=== PATIENT | female | born 1970 | race Caucasian/White ===

== ENCOUNTER 2022-01-14 01:10 | Emergency (ER) | payer MEDICAID ==
[~2022-01-14] VITALS: Ht 170.2 cm; Wt 78.0 kg
[2022-01-14 04:51] LABS: BASOPHILS % 1.1 % (0.0-2.0); EOSINOPHILS % 1.7 % (0.0-5.0); HEMATOCRIT. 32.5 % (36.0-48.0); HEMOGLOBIN. 10.2 g/dL (12.0-16.0); LYMPHOCYTES % 26.2 % (20.0-50.0); MEAN CORPUSCULAR HEMOGLOBIN 23.3 pg (28.0-32.0); MEAN CORPUSCULAR VOLUME 74.5 fL (81.0-99.0); MEAN PLATELET VOLUME 7.6 fl (7.4-10.4); MONOCYTES % 7.8 % (2.0-8.0); NEUTROPHILS % 63.2 % (40.0-76.0); PLATELET 385 x1000/uL (130-400); RED BLOOD CELL COUNT 4.37 mill/uL (4.2-5.4)
[2022-01-14 04:59] LABS: CHLORIDE 103 mEq/L (98-107)
[2022-01-14 05:02] LABS: *BARBITURATES SCREEN URINE NEGATIVE (NEGATIVE); *BENZODIAZEPINES SCREEN URINE NEGATIVE (NEGATIVE); *COCAINE SCREEN URINE NEGATIVE (NEGATIVE); CANNABINOID URINE SCREEN NEGATIVE (NEGATIVE); METHADONE URINE SCREEN NEGATIVE (NEGATIVE); OPIATES URINE SCREEN NEGATIVE (NEGATIVE); PHENCYCLIDINE URINE SCREEN NEGATIVE (NEGATIVE)
[2022-01-14 05:07] LABS: ETHANOL BLOOD 74 mg/dL
[2022-01-14 05:08] LABS: PLATELET ESTIMATE NORMAL
[2022-01-14 05:18] LABS: *AMPHETAMINES SCREEN URINE PRESUMTIVE POSITIVE (NEGATIVE)
[2022-01-14] MEDS ORDERED: ACETAMINOPHEN 325MG TABLET PO SCH (09:00)
[2022-01-14] MEDS: OLANZAPINE 5MG TABLET ODT PO SCH (18:58)
[2022-01-14] MEDS: CITALOPRAM HYDROBROMIDE 10MG TABLET PO SCH (18:58)
[2022-01-14] MEDS ORDERED: ACETAMINOPHEN 325MG TABLET PO NR (19:30)
[2022-01-15] MEDS: OLANZAPINE 5MG TABLET ODT PO SCH (06:00)
[2022-01-15] MEDS: CITALOPRAM HYDROBROMIDE 10MG TABLET PO SCH (06:00)
[2022-01-15 09:11] VITALS: BP 145/76
== END 2022-01-15 11:56 | disposition home or self-care (01) ==
LOC: ER 01:10
DX: F10.229 Alcohol dependence with intoxication, unspecified (principal); F15.10 Other stimulant abuse, uncomplicated; R45.851 Suicidal ideations; F20.9 Schizophrenia, unspecified; Z98.890 Other specified postprocedural states; Y90.3 Blood alcohol level of 60-79 mg/100 ml; Z75.1 Person awaiting admission to adequate facility elsewhere; Z20.822 Contact with and (suspected) exposure to COVID-19
CPT/HCPCS: 36415; 80053; 80305; 80307; 80320; 80329; 85025; 99285; C9803; U0003; U0005; G0480